=== PATIENT | female | born 1960 | race Caucasian/White ===

== ENCOUNTER 2021-10-14 14:19 | Outpatient (REF) | payer OTHER, SELFPAY ==
[2021-10-14 15:34] LABS: Thyroid Stimulating Hormone 4.36 uIU/mL (0.32-4.0)
[2021-10-14 15:40] LABS: Vitamin B12 319 pg/mL (200-900)
[2021-10-16 16:52] LABS: Ceruloplasmin 32 mg/dL (18-53)
== END 2021-10-14 14:20 | disposition home or self-care (01) ==
LOC: HO.LAB 14:19
PROVIDERS: PCP Nurse Practitioner Family; Visit Provider Internal Medicine
DX: R41.3 Other amnesia (principal); R20.0 Anesthesia of skin
CPT/HCPCS: 36415; 82390; 82607; 84443

== ENCOUNTER 2024-03-17 08:12 | Emergency (ER) | payer OTHER, SELFPAY ==
--- NOTE | ~2024-03-17 | CT_ITS ---
EXAMINATION: CT HEAD WITHOUT CONTRAST CLINICAL INFORMATION: Headache, hypertension TECHNIQUE: Contiguous axial imaging was performed from the skull base to vertex without intravenous administration of contrast. All CT exams at this location are performed using dose optimization techniques as appropriate to a performed exam including at least one of the following: * Automated exposure control * Adjustment of the mA and/or kV according to patient size (this includes techniques or standardized protocols for targeted exams where dose is matched to indication / reason for exam; i/e/ extremities or head) * Use of iterative reconstructive technique DLP: 727 mGy-cm COMPARISON: None. FINDINGS: There is no evidence of acute intracranial hemorrhage, acute large vessel infarct, midline shift or mass effect. The archer-white differentiation is preserved. Mild periventricular white matter changes most consistent with chronic microvascular ischemic changes The ventricles and sulci are within normal limits in size and configuration. There is no evidence of hydrocephalus. There are no extraaxial collections. Osseous structures are intact. Paranasal sinuses and mastoid air cells are well aerated. CT/CT head/brain wo IV con IMPRESSION: No acute intracranial pathology. Mild chronic microvascular ischemic changes. Electronically signed by: Neel Solares MD 03/17/2024 02:07 PM MELINDA
[2024-03-17 08:33] VITALS: BP 152/97; PULSE 96; RESP 16; TEMP 35.7; O2SAT 99; BMI 44.7
[2024-03-17 09:36] VITALS: BP 149/100; PULSE 113
--- NOTE | 2024-03-17 10:43 | ED_ITS ---
HPI - General Adult General Chief complaint: General Medical Stated complaint: high bp Time Seen by Provider: 03/17/24 10:08 Source: patient and family Mode of arrival: ambulatory Limitations: no limitations History of Present Illness ED Provider: Kristian EMERSON narrative: Patient is a 63-year-old female with history of HTN on losartan, migraines presenting to the emergency department with complaint of headache, nausea, vomiting yesterday. States that she checked her blood pressure with the assistance of her sister who is a nurse practitioner, and it was noted to be high. She had readings of 197/107, 170/107. She then took an additional dose of her losartan (50mg) at the recommendation of her sister. Blood pressures improved somewhat but were still elevated (154/90, 163/111). Took Ubrelvy for her migraine yesterday, but vomited afterward. Did not take anything today. Associated lightheadedness. Describes a fog over entire visual field yesterday which has since resolved. Denies chest pain, palpitations. Does report chronic cough with associated dyspnea. Also complains of foul smelling urine but denies hematuria or dysuria. MD complaint: elevated blood pressure, headache Onset (ago): day(s) Location: head Radiation: non-radiation Severity: severe Quality: aching Pain Consistency: colicky Associated symptoms: other Treatments prior to arrival: other Related Data Allergies Allergy/AdvReac Type Severity Reaction Status Date / Time Penicillins [PENICILLINS] Allergy Mild RASH Verified 03/17/24 08:38 Sulfa (Sulfonamide Allergy Mild RASH Verified 03/17/24 08:38 Antibiotics) ITCHING [SULFA(SULFONAMIDE ANTIBIOTICS)] tizanidine [TIZANIDINE] Allergy Unknown AGITATION Verified 03/17/24 08:38 oxycodone Allergy Hallucinati Verified 03/17/24 08:38 ons From TYLOX Allergy Mild HALLLUCINAT Uncoded 12/22/19 17:32 IONS PMFSH Social History Social History Advance Directives: No Advance Directives Information Provided: Yes Physical Exam ED Vital Signs: Vital Signs - 24 hr 03/17/24 08:33 03/17/24 09:36 03/17/24 11:44 Temperature 96.3 F L Pulse Rate 96 113 H 72 Respiratory Rate 16 17 Blood Pressure 152/97 H 149/100 H 166/90 H Pulse Oximetry 99 97 Oxygen Delivery Method Room Air Room Air Room Air 03/17/24 13:47 03/17/24 14:25 Temperature Pulse Rate 80 83 Respiratory Rate 18 17 Blood Pressure 155/95 H 157/94 H Pulse Oximetry 97 Oxygen Delivery Method Room Air BMI result Body Mass Index 44.7 NIH Stroke Scale Internal: Initial- Upon Arrival Time: 10:45 Level of Consciousness: Alert Level of Consciousness Questions: Answers both questions correctly Level of Consciousness Commands: Performs both tasks correctly Best Gaze: Normal Visual: No visual loss Facial Palsy: Normal Motor Arm (Right): No drift Motor Arm (Left): No drift Motor Leg (Right): No drift Motor Leg (Left): No drift Limb Ataxia: Absent Sensory: Normal Best Language: No aphasia Dysarthia: Normal Extinction and Inattention: No abnormality Score: 0 Medical Decision Making Medical Decision Making [facility] Narrative: Patient is a 63-year-old female with history of HTN on losartan, migraines presenting to the emergency department with complaint of headache, nausea, vomiting yesterday. On exam patient is awake, A+Ox3, BP elevated, VS otherwise WNL, afebrile, normal neurological exam without focal deficits, physical exam findings as above. Given reported symptoms and physical exam findings, initial differential includes ICH, essential HTN, electrolyte abnormality, UTI, viral illness. Labs notable for no leukocytosis, no anemia, no significant electrolyte abnormalities, slightly elevated transaminases. CT notable for no acute intracranial abnormalities. My interpretation is in agreement with the radiologist's interpretation. Viral serology negative. Urinalysis is without evidence of infection. Results discussed with patient and family at bedside and all questions answered. Advised patient to begin checking blood pressures at home and documenting the readings, schedule follow-up appointment with her PCP and bring these blood pressure readings with her there. Return precautions discussed at bedside. Patient verbalized understanding of and agreement with plan. Differential Diagnosis Differential Diagnoses: The differential diagnosis associated with the presentation includes As per [facility] Admission/Observation Consideration of admission/observation: Escalation of care including admission/observation considered Patient would have been admitted to the hospital had their work up had any findings where hospital admission was appropriate and their clinical presentation warranted hospital admission. Lab Data [facility] Lab Attestation statement: I reviewed the patient's lab results. As per [facility] 03/17/24 11:03 03/17/24 11:03 Labs: Lab Results 03/17/24 03/17/24 03/17/24 Range/Units 11:03 11:39 15:35 WBC 5.0 (4.8-10.8) X10*3/uL RBC 4.43 (4.20-5.50) X10*6/uL Hgb 13.7 (12.0-16.0) g/dl Hct 42.1 (37.0-47.0) % MCV 95.0 (80.0-98.0) fL MCH 30.9 (27.0-33.0) pg MCHC 32.5 (31.0-35.0) g/dl RDW 13.5 (11.0-16.0) % Plt Count 196 (160-400) X10*3/uL MPV 9.6 (9.4-12.3) fL Immature Gran % (Auto) 0.6 H (0.0-0.4) % Neut % (Auto) 57.5 (45-73) % Lymph % (Auto) 28.3 (20-40) % [place] % (Auto) 8.8 (2-11) % Eos % (Auto) 3.8 (0-4) % Baso % (Auto) 1.0 (0-2) % Lymph # (Auto) 1.4 (1.2-4.9) X10*3/uL [place] # (Auto) 0.4 (0.1-1.2) X10*3/uL Eos # (Auto) 0.2 (0.0-0.4) X10*3/uL Baso # (Auto) 0.1 (0.0-0.2) X10*3/uL Abs Immat Gran (auto) 0.03 (0.00-0.03) X10*3/uL Absolute Neuts (auto) 2.9 (2.0-8.3) x10*3/uL Absolute Nucleated RBC 0.000 (0.0-0.012) X10*3/uL Nucleated RBC % (auto) 0.0 (0.0-0.2) /100WBC Sodium 143 (135-145) mmol/L Potassium 3.9 (3.3-5.1) mmol/L Chloride 107 (96-108) mmol/L Carbon Dioxide 29 (22-29) mmol/L Anion Gap 11 L (12-20) BUN 11 (9-16) mg/dL Creatinine 0.90 (0.5-1.4) mg/dL Estim Creat Clear Calc 90.4 Estimated GFR > 60 Random Glucose 106 (60-115) mg/dL Calcium 10.2 (8.4-10.2) mg/dL Total Bilirubin 0.5 (0.0-1.0) mg/dL AST 53 H (5-31) U/L ALT 73 H (0-31) U/L Alkaline Phosphatase 85 (39-117) U/L Total Protein 7.4 (6.5-8.0) g/dL Albumin 4.2 (3.5-5.0) g/dL Urine Color Yellow Urine Appearance Clear Urine pH 8.0 (5.0-9.0) Ur Specific [place] 1.010 (1.005-1.025) Urine Protein Negative (Neg-Trace) mg/dL Urine Glucose (UA) Negative (Negative) mg/dL Urine Ketones Negative (Negative) mg/dL Urine Blood Negative (Negative) Urine Nitrite Negative (Negative) Ur Leukocyte Esterase Negative (Negative) Influenza Type A (PCR) NEGATIVE (Negative) Influenza Type B (PCR) NEGATIVE (Negative) RSV RNA Qual (PCR) NEGATIVE (Negative) SARS-CoV-2 RNA (RT-PCR) NEGATIVE (Negative) Independent Interpretation I performed an independent interpretation of an: EKG (normal sinus rhythm, rate 73bpm, normal WI interval, slightly prolonged QTc) and CT Scan Interpretation: No acute intracranial abnormalities Radiology Impression Discussion of test interpretation with radiology: I have reviewed the radiologist's reading. Radiologist Impression: IMPRESSION: No acute intracranial pathology. Mild chronic microvascular ischemic changes. External Record Review External record reviewed: Inpatient record, Office record and Outpatient record Chronic Conditions Patient?s care impacted by: Hypertension Discharge Plan Discharge Clinical Impression: Hypertension, Headache Patient Disposition: Home, Self-Care Instructions: How to Take a Blood Pressure (ED), Hypertension (ED) Additional Instructions: You were evaluated in the emergency department today for elevated blood pressure readings and headaches. Your evaluation did not show evidence of conditions requiring arrange medical treatment at this time. We recommend that you continue to monitor your blood pressure readings at home. Our recommendation is that you check your blood pressure on Mondays, Wednesdays, and Fridays and document the readings. Schedule follow-up appointment with your primary care provider and bring these blood pressure readings with you to discuss whether you need to have changes made to her blood pressure medications. Return to the emergency department if you develop severe headache/worst headache of your life, blurred vision, double vision or other visual changes, chest pain, difficulty breathing or any other concerning symptoms. Print Language: Slovenian
--- NOTE | 2024-03-17 10:44 | ECG_ITS ---
Test Reason : HTN Blood Pressure : / mmHG Vent. Rate : 073 BPM Atrial Rate : 073 BPM P-R Int : 146 ms QRS Dur : 084 ms QT Int : 430 ms P-R-T Axes : 046 -14 088 degrees QTc Int : 473 ms Normal sinus rhythm Moderate voltage criteria for LVH, may be normal variant ( R in aVL , Clarence product ) Nonspecific T wave abnormality Abnormal ECG When compared with ECG of 07-MAY-2012 11:40, Premature ventricular complexes are no longer Present Nonspecific T wave abnormality now evident in Lateral leads Referred By: Sherry Townsend Electronically Signed By:SANDRA FERNANDES MD
[2024-03-17 11:06] LABS: MANUAL DIFF FLAG NO
[2024-03-17 11:08] LABS: Basophils Absolute Auto 0.1 X10*3/uL (0.0-0.2); Eosinophils Absolute Auto 0.2 X10*3/uL (0.0-0.4); Eosinophils Percent Auto 3.8 % (0-4); Hematocrit 42.1 % (37.0-47.0); Hemoglobin 13.7 g/dl (12.0-16.0); Imm Gran Abs Auto 0.03 X10*3/uL (0.00-0.03); Imm Gran Pct Auto 0.6 % (0.0-0.4); Lymphocytes Absolute Auto 1.4 X10*3/uL (1.2-4.9); Lymphocytes Percent Auto 28.3 % (20-40); Mean Corpuscular HGB Conc 32.5 g/dl (31.0-35.0); Mean Corpuscular Hemoglobin 30.9 pg (27.0-33.0); Mean Platelet Volume 9.6 fL (9.4-12.3); Monocytes Absolute Auto 0.4 X10*3/uL (0.1-1.2); Monocytes Percent Auto 8.8 % (2-11); Neutrophils Absolute Auto 2.9 x10*3/uL (2.0-8.3); Neutrophils Percent Auto 57.5 % (45-73); Platelet Count 196 X10*3/uL (160-400); Red Blood Count 4.43 X10*6/uL (4.20-5.50); Red Cell Distribution Width 13.5 % (11.0-16.0)
[2024-03-17 11:22] LABS: Alanine Aminotransferase 73 U/L (0-31); Albumin Level 4.2 g/dL (3.5-5.0); Alkaline Phosphatase 85 U/L (39-117); Anion Gap 11 (12-20); Aspartate Amino Transferase 53 U/L (5-31); Bilirubin Total 0.5 mg/dL (0.0-1.0); Blood Urea Nitrogen 11 mg/dL (9-16); Calcium 10.2 mg/dL (8.4-10.2); Carbon Dioxide 29 mmol/L (22-29); Chloride 107 mmol/L (96-108); Creatinine Clr Calc Pharmacy 90.4; Estimated Glomerular Filt Rate > 60; Glucose Random 106 mg/dL (60-115); Potassium 3.9 mmol/L (3.3-5.1); Sodium 143 mmol/L (135-145); Total Protein 7.4 g/dL (6.5-8.0)
[2024-03-17 11:44] VITALS: BP 166/90; PULSE 72; RESP 17; O2SAT 97
[2024-03-17 12:29] LABS: Influenza A PCR NEGATIVE (Negative); Influenza B PCR NEGATIVE (Negative); Resp Syncy Virus RNA Qual PCR NEGATIVE (Negative); SARS COV2 PCR INHOUSE NEGATIVE (Negative)
[2024-03-17 13:47] VITALS: BP 155/95; PULSE 80; RESP 18
[2024-03-17 14:25] VITALS: BP 157/94; PULSE 83; RESP 17; O2SAT 97
[2024-03-17 15:51] LABS: Appearance Urine Clear; Color Urine Yellow; Glucose Urine UA Negative (Negative); Leukocyte Esterase Urine Negative (Negative); Nitrite Urine Negative (Negative); Urine Blood Negative (Negative); Urine Ketones Negative (Negative); Urine Protein Negative (Neg-Trace)
[2024-03-17 16:15] VITALS: BP 157/94; PULSE 83; RESP 17; TEMP 35.7; O2SAT 97
== END 2024-03-17 16:15 | disposition home or self-care (01) ==
PROVIDERS: Registered Nurse Emergency; Emergency Provider Student in an Organized Health Care Education/Training Program; PCP Registered Nurse
DX: I10 Essential (primary) hypertension (principal); R51.9 Headache, unspecified; R11.2 Nausea with vomiting, unspecified; R29.700 NIHSS score 0; Z79.899 Other long term (current) drug therapy; Z03.818 Encounter for observation for suspected exposure to other biological agents ruled out; R05.9 Cough, unspecified
CPT/HCPCS: 0241U; 36415; 70450; 80053; 81003; 85025; 93005; 99284; 99285

== ENCOUNTER → 2024-03-17 10:44 | Outpatient (BNV) | payer OTHER, SELFPAY | PROVIDERS: Emergency Provider Student in an Organized Health Care Education/Training Program; PCP Registered Nurse; Visit Provider Internal Medicine Cardiovascular Disease | DX: R94.31 Abnormal electrocardiogram [ECG] [EKG] (principal) | CPT/HCPCS: 93010 ==